=== PATIENT | female | born 1940 | race African-American/Black ===

== ENCOUNTER 2017-05-11 12:54 | Emergency (ER) | payer OTHER ==
[~2017-05-11] VITALS: Ht 149.9 cm; Wt 61.2 kg
== END 2017-05-11 14:25 | disposition home or self-care (01) ==
LOC: CED 12:54
DX: S61.213A Laceration without foreign body of left middle finger without damage to nail, initial encounter (principal); I10 Essential (primary) hypertension; Y28.9XXA Contact with unspecified sharp object, undetermined intent, initial encounter; Y92.009 Unspecified place in unspecified non-institutional (private) residence as the place of occurrence of the external cause
CPT/HCPCS: 12002; 99283